=== PATIENT | male | born 1950 | race Caucasian/White ===

== ENCOUNTER → 2017-03-12 | Outpatient (CLI) | payer OTHER ==
[~2017-03-12] MED LIST: ASPIRIN325 PO; ATORVASTATIN CA40 MG PO; CEPACOL SORE T1 EAC7 MM; CHANTIX1 MG PO; DEEP SEA NASAL44 M1 NS; DOXYCYCLINE 10100 MG PO; DUONEB 2.5-0.5 M3 ML INH; ENOXAPARIN40 MG/0.1 SUBQ; FISH OIL 1,001000 M2 PO; HYDRALAZINE 2525 MG PO; LIDODERM 5%1 PATC1 TRANSDERM; MS CONTIN15 MG PO; NEURONTIN600 MG PO; NORCO 10-325 T1 EACH PO; NORVASC5 MG PO; NOVOLOG100 UNIT/1 SUBQ; PANTOPRAZOLE SO40 M1 PO; PERCOCET 10-321 EACH PO; QUINU10 PD PO; RIFAMPIN 300 M300 M1 NG; SERTRALINE HCL50 MG PO; SODIUM CHLORIDE10 ML IV; SOLU-MEDRO40 MG/1 M2 IV PUSH; TRAZODONE HCL50 MG PO
== END ==
LOC: SLEEPLAB 19:26
DX: G47.33 Obstructive sleep apnea (adult) (pediatric) (principal)

== ENCOUNTER → 2019-06-03 | Outpatient (CLI) | payer OTHER | LOC: SJCVCIMAG 12:55 | DX: I08.8 Other rheumatic multiple valve diseases (principal); I65.23 Occlusion and stenosis of bilateral carotid arteries; I11.9 Hypertensive heart disease without heart failure; R94.31 Abnormal electrocardiogram [ECG] [EKG]; I25.10 Atherosclerotic heart disease of native coronary artery without angina pectoris; E78.5 Hyperlipidemia, unspecified; I71.6 Thoracoabdominal aortic aneurysm, without rupture; J44.9 Chronic obstructive pulmonary disease, unspecified; E03.9 Hypothyroidism, unspecified; G47.33 Obstructive sleep apnea (adult) (pediatric); F32.9 Major depressive disorder, single episode, unspecified; F17.210 Nicotine dependence, cigarettes, uncomplicated; Z95.1 Presence of aortocoronary bypass graft; Z86.73 Personal history of transient ischemic attack (TIA), and cerebral infarction without residual deficits; Z72.89 Other problems related to lifestyle ==